=== PATIENT | female | born 1990 | race Caucasian/White ===

== ENCOUNTER 2016-09-27 08:38 | Outpatient (CLI) | payer OTHER ==
--- NOTE | 2016-09-27 10:43 | DIAGNOSTIC IMAGING REPORT ---
PROCEDURE: MR BRAIN W/WO CONTRAST INDICATION: ELEVATED PROLACTIN LEVEL TECHNIQUE: Multiplanar multisequence MRI imaging of the brain without contrast. Post administration of 20 CC ProHance gadolinium based IV contrast, three plane T1 fat sat sequences were obtained. COMPARISON: None. FINDINGS: The midline structures are normally formed. The ventricular system is normal in size. Basal cisterns are patent. Flow voids in the major intracranial vessels are normal. No vascular malformations seen post contrast. Signal throughout the travis and white matter is normal. No restricted diffusion to suggest acute ischemia. No evidence of acute or chronic intraparenchymal or extra-axial hemorrhage. No mass, mass effect, or midline shift. No suspicious enhancement. Normal signal in the visible bones. The sinuses are normally aerated. Visible extracranial soft tissues including the orbits are normal. IMPRESSION: 1. Normal MRI of the brain. 2. No abnormal enhancement.
== END 2016-09-27 23:00 ==
LOC: MRI SRH 08:38
DX: E22.9 Hyperfunction of pituitary gland, unspecified (principal)